=== PATIENT | male | born 1955 | race Caucasian/White ===

== ENCOUNTER 2018-10-11 10:24 | Outpatient (CLI) | payer OTHER ==
[~2018-10-11 10:24] MED LIST: ATENOLOL25 MG PO; HYDROCHLOROTH12.5 M1 PO; LIPITOR20 MG PO; LOTREL 10-40 M1 EACH PO
== END 2018-10-11 10:29 | disposition home or self-care (01) ==
LOC: RAD 10:24
DX: R05 Cough (principal)

== ENCOUNTER 2018-10-16 05:36 | Day surgery (SDC) | payer OTHER | END 2018-10-16 14:35 | disposition home or self-care (01) | LOC: CIR.AMB 05:36 | DX: M67.422 Ganglion, left elbow (principal) ==

== ENCOUNTER 2020-12-16 08:57 | Outpatient (CLI) | payer OTHER | END 2020-12-16 09:01 | disposition home or self-care (01) | LOC: NUCLEAR 08:57 | PROVIDERS: ATTEND Internal Medicine Cardiovascular Disease | DX: I65.23 Occlusion and stenosis of bilateral carotid arteries (principal) ==

== ENCOUNTER 2022-10-10 09:16 | Emergency (ER) | payer OTHER ==
[~2022-10-10] VITALS: Ht 175.3 cm; Wt 113.4 kg
[2022-10-10] MEDS ORDERED: METOPROLOL SUCC25 MG (09:25)
[2022-10-10] MEDS ORDERED: PANTOPRAZOLE SO40 MG (09:26)
[2022-10-10] MEDS ORDERED: TYLENOL ARTHRI650 MG PO (12:37)
[2022-10-10] MEDS ORDERED: DICLOFENAC POTA50 MG PO (12:38)
== END 2022-10-10 12:47 | disposition home or self-care (01) ==
LOC: ER 09:16
DX: M54.16 Radiculopathy, lumbar region (principal); M70.62 Trochanteric bursitis, left hip; I10 Essential (primary) hypertension; N40.0 Benign prostatic hyperplasia without lower urinary tract symptoms